=== PATIENT | female | born 1985 | race Caucasian/White ===

== ENCOUNTER 2016-10-02 13:26 | Emergency (ER) | payer OTHER ==
[~2016-10-02] VITALS: Ht 152.4 cm; Wt 81.7 kg
[~2016-10-02 13:26] MED LIST: ADDERALL XR 2525 MG PO; Atarax,Vistaril PO; FLEXERIL10 MG PO; Motrin PO; NAPROSYN500 MG PO; NEXPLANON68 MG SC; PROzac PO; Percocet 5/325,Endoc PO; Prefera-OB Plus DHA PO; ULTRACET1 TABLET PO
[2016-10-02] MEDS ORDERED: INDOCIN50 MG PO (16:43)
[2016-10-02 17:00] VITALS: BP 153/98
== END 2016-10-02 17:02 | disposition home or self-care (01) ==
LOC: EME 13:26
DX: G89.29 Other chronic pain (principal); M25.572 Pain in left ankle and joints of left foot; M19.072 Primary osteoarthritis, left ankle and foot; F17.200 Nicotine dependence, unspecified, uncomplicated
CPT/HCPCS: 73610; 99281; 99284

== ENCOUNTER 2016-11-28 19:33 | Emergency (ER) | payer OTHER ==
[~2016-11-28] VITALS: Ht 152.4 cm; Wt 84.7 kg
[~2016-11-28 19:33] MED LIST changes: +INDOCIN50 MG PO
[2016-11-28] MEDS ORDERED: MOTRIN800 MG PO (21:28)
[2016-11-28 21:49] VITALS: BP 125/77
== END 2016-11-28 21:51 | disposition home or self-care (01) ==
LOC: EME 19:33
DX: M24.312 Pathological dislocation of left shoulder, not elsewhere classified (principal); F17.200 Nicotine dependence, unspecified, uncomplicated
CPT/HCPCS: 99281; 99283

== ENCOUNTER → 2018-02-24 | Outpatient (CLI) | payer OTHER ==
[~2018-02-24] MED LIST changes: +MOTRIN800 MG PO
== END | disposition home or self-care (01) ==
LOC: CDC 15:36
DX: O09.90 Supervision of high risk pregnancy, unspecified, unspecified trimester (principal); R00.0 Tachycardia, unspecified; R94.31 Abnormal electrocardiogram [ECG] [EKG]
CPT/HCPCS: 93000